=== PATIENT | male | born 1955 | race Caucasian/White ===

== ENCOUNTER 2016-08-14 17:38 | Inpatient (IN) ==
[2016-08-14 18:56] LABS: MANUAL DIFF NEEDED? NO
[2016-08-14 18:59] LABS: BASO% 0.2 % (0.0-0.8); EOS# 0.26 X1000 (0.0-0.7); EOS% 2.8 % (0.0-10.0); HEMATOCRIT 43.9 % (42.0-52.0); HEMOGLOBIN 14.5 g/dL (14.0-18.0); IMM GRAN# 0.01 X1000 (0.0-0.04); IMM GRAN% 0.1 % (0.0-0.5); LYMPH# 2.81 X1000 (1.2-3.4); LYMPH% 29.8 % (20.5-51.1); MCH 29.4 PG (27-31); MCV 88.9 FL (81-99); MONO# 0.78 X1000 (0.11-0.59); MONO% 8.3 % (1.7-9.3); MPV 9.8 FL (7.4-10.4); NEUT% 58.8 % (42.2-75.2); PLT 281 X1000 (130-400); RBC 4.94 XMIL (4.7-6.1)
[2016-08-14 19:15] LABS: INR 0.97 (0.86-1.15); PROTIME 13.2 Seconds (12.1-15.5)
[2016-08-14 19:20] LABS: AGAP 12; ALKALINE PHOSPHATASE 102 U/L (32-122); BUN 21 mg/dL (8-22); CALCIUM 9.4 mg/dL (8.8-10.2); CHLORIDE 103 mmol/L (98-107); COSMO 287; GOT 18 U/L (10-34); GPT 20 U/L (10-44); POTASSIUM 3.9 mmol/L (3.5-5.1); SODIUM 141 mmol/L (136-145); TCO2 26 mmol/L (25-35); TOTAL PROTEIN 7.4 g/dL (6.3-8.3)
[2016-08-14] MEDS ORDERED: TYLENOL PO PRN (20:04)
[2016-08-14] MEDS ORDERED: LOVENOX 1 MG/KG SUBQ ONE (20:04)
[2016-08-14] MEDS ORDERED: NS 1,000 ML IV ONE (20:04)
[2016-08-14] MEDS ORDERED: LOVENOX ONE (20:13)
--- NOTE | 2016-08-14 20:13 | Extremity Venous Study ---
EXAM: Venous U/S Left Leg INDICATION: swelling hx ca kidney TECHNIQUE: COMPARISON: None. FINDINGS: There is extensive occlusive thrombus in the left deep venous system. It involves the common femoral vein, superficial femoral vein, popliteal vein, posterior tibial vein, and peroneal veins. There is also thrombus in the great saphenous vein. There is surrounding soft tissue edema. IMPRESSION: 1.Extensive left lower extremity deep venous thrombosis as described. 2.Superficial thrombus in the great saphenous vein. Electronically signed by Miguel Oliveira 08/14/2016 8:11 PM
[2016-08-14] MEDS ORDERED: DUONEB (A & A) INH PRN (20:49)
[2016-08-14] MEDS: NICODERM PATCH TD SCH (23:29)
[2016-08-15] MEDS ORDERED: COUMADIN PO ONE (07:59)
[2016-08-15] MEDS: NICODERM PATCH TD SCH (08:42)
[2016-08-15] MEDS: LOVENOX SUBQ SCH ×2 (08:42→21:49)
--- NOTE | 2016-08-15 12:31 | HISTORY AND PHYSICAL ---
CHIEF COMPLAINT: Left lower extremity edema and pain. HISTORY OF PRESENT ILLNESS: This is a 61-year-old male with a prior history of renal cancer, CAD with SC x2, CVA who presented to the emergency room complaining of about 24 hours of left lower extremity edema and pain. He denies any known injury. He states he did fall 3 weeks ago and sustained a left hip injury, although after being evaluated in the emergency room, he was found to have no bony injury and discharged home. Lower extremity Doppler of the left leg revealed extensive left lower extremity DVT, involving the common femoral vein, superficial femoral vein, popliteal vein, posterior tibial vein and peroneal vein. There is also thrombus in the great saphenous vein. In the emergency room, he was given warfarin 5 mg as well as Lovenox 1 mg/kg and is being admitted for further evaluation and treatment. PAST MEDICAL HISTORY: CAD status post SC x2. Renal cancer. CVA. COPD. Hyperlipidemia. PAST SURGICAL HISTORY: Tonsillectomy. Nephrectomy. SOCIAL HISTORY: He denies any illicit drug use. He does smoke 2 packs a day and he does drink alcohol. ALLERGIES: Codeine. MEDICATIONS: None. REVIEW OF SYSTEMS: A 14 point review of systems is discussed with the patient with pertinent positives stated in the HPI. He denied chest pain, palpitations, dizziness, syncope, fever, chills, cough, PND, orthopnea, shortness of breath, dyspnea on exertion, any nausea, vomiting, diarrhea, constipation, black or bloody vomitus, black or bloody stools. PHYSICAL EXAMINATION: GENERAL: This is a 61-year-old male who is lying in the bed in no distress. VITAL SIGNS: Blood pressure is 150/90, with a heart rate of 73, respirations are 18, temperature is 98.2 degrees, with room air saturations 100%. CARDIOVASCULAR: Regular rate and rhythm. S1 and S2 appreciated. PULMONARY: Breath sounds are clear with no increased work of breathing noted gastrointestinal. GASTROINTESTINAL: Abdomen is soft, nontender, nondistended with bowel sounds in all 4 quadrants. EXTREMITIES: No clubbing, cyanosis, or edema to upper extremities and right lower. Left lower extremity has pitting edema from about midthigh down with pulses palpable x4. NEUROLOGIC: He is alert and oriented x3. LABORATORY: WBC is 9.4, with hemoglobin 14.5, hematocrit 43.9, and platelets of 281,000. INR is 0.97 with a D-dimer of 5.61. Sodium is 141, potassium 3.9, BUN 21, creatinine 0.9, with a glucose of 140, with left lower extremity Doppler stated above. ASSESSMENT AND PLAN: 1. Extensive deep venous thrombosis, left lower extremity. 2. Lower extremity edema secondary to #1. 3. Coronary artery disease. 4. History of cerebrovascular accident. 5. Chronic obstructive pulmonary disease. 6. Tobacco abuse and use. 7. Alcohol use. 8. Noncompliance with medications. PLAN: He will be admitted to the hospital. He was will continue Lovenox until he is therapeutic with his warfarin. I did discuss with the patient the importance of taking his warfarin and following up to make sure that he is therapeutic so that he gets no more clot nor bleed. The patient states that he stopped taking all of his medications in the past, stating that he felt better without them than while taking them. Further treatments pending hospital course. Dictated by CM Hernandez for Karl Jesus MD cc: MC Hernandez MD
[2016-08-15] MEDS ORDERED: COUMADIN PO SCH (21:00)
[2016-08-16 07:13] LABS: PROTIME 13.5 Seconds (12.1-15.5)
[2016-08-16 07:46] VITALS: BP 127/75
--- NOTE | 2016-08-16 07:59 | DISCHARGE SUMMARY ---
ADMISSION DATE: 08/14/2016 DISCHARGE DATE: 08/16/2016 DIAGNOSES: 1. Extensive deep venous thrombosis of the left lower extremity. 2. Left lower extremity edema secondary to #1. 3. History of coronary artery disease. 4. History of cerebrovascular accident. 5. Chronic obstructive pulmonary disease. 6. Tobacco use and abuse. 7. Alcohol use. 8. Noncompliance with medication and physician followup. DIAGNOSTICS: On 08/14/2016, a left leg venous ultrasound revealed extensive thrombus in the left lower extremity with superficial thrombus in the greater saphenous vein. HOSPITAL COURSE: Mr. Azevedo presented to the emergency room complaining of 24 hours of left lower extremity edema and pain. He was found to have an extensive DVT to the left lower extremity. He was initially started on Lovenox and warfarin. Once we found that he could afford Xarelto, we did transition to that. DISCHARGE PHYSICAL EXAMINATION: Cardiovascular: Regular rate and rhythm. S1 and S2 are appreciated. Pulmonary: Breath sounds are clear and no increased work of breathing noted. Gastrointestinal: Abdomen is soft, nontender, nondistended. Bowel sounds in all 4 quadrants. Extremities: No clubbing, cyanosis, or edema to upper extremities or right lower extremity. Left lower extremity has some pitting edema from midthigh down, with pulses palpable x4. Neurologic: He is alert and oriented x3. DISCHARGE MEDICATIONS: 1. Xarelto 15 mg twice a day for 21 days. 2. Xarelto 20 mg daily to start on day 22 after completing the 50 mg b.i.d. DISCHARGE ACTIVITY: As tolerated. FOLLOWUP: He needs to follow up with his primary care physician in 2-3 weeks. If he does not have a primary care physician, he will be given to assist with finding one. The patient does have a history of CAD as well as stroke and COPD. He stated that he stopped taking medications quite some time ago as he felt that he was better without them than while taking them. We did discuss the importance of taking his Xarelto and then stopping this, and the perils of stopping the medication including a pulmonary embolus, stroke, [place], or . He did voice understanding. He is being discharged home in stable condition with family members. TIME SPENT: This is a greater than 30 minute discharge. Dictated by MC Hernandez for Karl Jesus MD cc: MC Hernandez MD
[2016-08-16] MEDS: NICODERM PATCH TD SCH (08:03)
[2016-08-16] MEDS ORDERED: XARELTO PO SCH (09:00)
--- NOTE | 2016-09-04 19:52 | PROVIDER DOCUMENTATION ---
This chart was entered by Coral Hernandez Scribe, acting as scribe for Obed Galloway MD. HPI-Musculoskeletal Pain/Inj - GENERAL Chief Complaint: Extremity Pain Stated Complaint: LEG SWELLING,THIGH PAIN Time Seen by Provider: 08/14/16 18:42 Source: patient - HX OF PRESENT ILLNESS-MUSKULOSKELTAL Nature of Presenting Problem: 61 Y/O M presents to ED with Extremity Pain. Pt has a hx of kidney Cancer and states starting yesterday he had pain in his leg. C/o of edema in his left thigh radiating down his left leg. Pt states that he had no injury, recent hip surgery 3 weeks ago. Hx of smoker with COPD . Quality of Pain: reports: aching Severity in ED: moderate Onset/Duration: last night Timing: still present Any recent injury?: No Locality of Occurance: Home Recently seen or treated by another doctor?: Yes (3 weeks ago for hip surgery ) - LOWER EXTREMITY PAIN/INJURY Lower Extremities Pain: leg: left, thigh: left Context / Method of Injury: reports: unknown Associated Symptoms: reports: denies symptoms Review of Systems - Adult - REVIEW OF SYSTEMS - ADULT Constitutional: denies: chills, fever Eyes: reports: no symptoms reported Ears, Nose, Mouth & Throat: reports: no symptoms reported Cardiovascular: reports: no symptoms reported Respiratory: reports: no symptoms reported Gastrointestinal: reports: no symptoms reported Genitourinary: reports: no symptoms reported Musculoskeletal: reports: muscle aches. denies: frequent leg cramps, muscle weakness Integumentary: reports: no symptoms reported Neurological: reports: no symptoms reported Psychiatric: reports: no symptoms reported Endocrine: reports: no symptoms reported Hematologic/Lymphatic: reports: no symptoms reported Allergic/Immunologic: reports: no symptoms reported All Other Systems: Reviewed and Negative Past History - Adult - PAST MEDICAL HISTORY-ADULT Review of Records: reports: Old Records Reviewed, Nursing Assessment Review, Medications Reviewed, Social history reviewed & non-contributory. Major Childhood Illnesses: reports: denies history Cardiovascular: reports: hyperlipidemia, [place] (x2) Respiratory: reports: COPD Gastrointestinal: reports: denies history Obstetrical/Gynecological: reports: denies history Genitourinary: reports: cancer, kidney disease Musculoskeletal: reports: denies history Neurological: reports: CVA (x2) Endocrine/Immune: reports: denies history Other Conditions: reports: denies history - PRIOR SURGERIES/PROCEDURES Surgical/Procedure History: reports: tonsillectomy - IMMUNIZATION STATUS Childhood Immunizations: See Nurse Assessment Flu Vaccine: See Nurse Assessment - FAMILY HISTORY Family History: reviewed, not pertinent Physical Exam-Injury Related - Physical Exam-Injury Related General Appearance: alert, mild distress Eyes: PERRL/EOMI, pink conjunctivae Head, Ears, Nose, Mouth & Throat: moist mucous membranes, normal ENT inspection , TMs normal, pharynx normal Neck: full range of motion, supple, normal inspection Respiratory: lungs clear, normal breath sounds Cardiovascular: regular rate, rhythm Abdominal Exam: non tender, soft Male Genitalia: normal genitalia Lymphatic: no adenopathy Back Exam: no CVA tenderness Extremity: pedal edema (left leg), swelling (left leg), tenderness (left leg), other (modeled, diffused left leg) Integumentary: warm/dry Psych/Mental Status: normal mood/affect, normal thought content, normal thought process, oriented x 3 - Glascow Coma Score Best Eye Response (Holcomb): (4) open spontaneously Best Verbal Response (Gerardo): (5) oriented Best Motor Response ([place]comb): (6) obeys commands Holcomb Total: 15 Progress - PLAN OF CARE/RESULTS Progress/Plan/Lab Results: Orders Category Date Time Status Admit - [facility] Routine AdmDCTranf 08/14/16 20:04 Ordered Activity - Strict Bedrest ORDERED Care 08/14/16 20:04 Active Vital Signs Order Q 8-HR .ASSESS Care 08/14/16 20:04 Active Z-Document. for Tele Applied ORDERED Care 08/14/16 20:06 Completed Heart Healthy Diet Diet 08/14/16 20:06 Completed CBC WITH DIFF [HEME] Stat Lab 08/14/16 18:40 Completed COMPREHENSIVE METABOLIC PANEL [CHEM] Stat Lab 08/14/16 18:[address] D-D[address] [COAG] Stat Lab 08/14/16 18:40 Completed PROTIME WITH INR PL [COAG] Stat Lab 08/14/16 18:40 Completed 0.9% Sodium Chloride Inj [Ns] 1,000 ml Med 08/14/16 20:04 Discontinued IV 100 mls/hr Acetaminophen [Tylenol] Med 08/14/16 20:04 Discontinued 650 mg PO Q6H PRN PRN Enoxaparin 1 mg/kg [Lovenox 1 mg/kg] Med 08/14/16 20:04 Discontinued 1 each SUBQ NOW ONE Enoxaparin [Lovenox] Med 08/14/16 20:13 Discontinued 80 mg .ROUTE .STK-MED ONE Telemetry [OM.EQ] Routine Oth 08/14/16 20:04 Active Venous U/S Left Leg Stat Ther 08/14/16 18:43 Completed Transfer/Admit Order [TRANSFER] Routine Transfer 08/14/16 20:09 Completed Result Diagrams: 08/14/16 18:40 08/14/16 18:40 - ULTRASOUND (By Radiology) 1 US Study: Lower Ext Impression: Abnormal US Results: bloodclot noted throughout leg Departure - Departure Date of Disposition Decision: 08/14/16 Time of Disposition Decision: 18:50 DIAGNOSIS: DVT (deep venous thrombosis) Qualifiers: DVT location: lower extremity Affected thrombotic vein of extremity: unspecified vein of extremity Chronicity: unspecified Laterality: left Qualified Code(s): I82.402 - Acute embolism and thrombosis of unspecified deep veins of left lower extremity Disposition: ADMITTED INPATIENT 09 Certified Medical Emergency: Emergent Condition: Stable - Critical Care Note This patient required my direct & personal management of CC.: No This chart was documented by the indicated scribe, (Coral Hernandez Scribe) and accurately reflects the services I performed and decisions made by me, Obed Galloway MD, as attested by the provider's signature.
== END 2016-08-16 08:15 | disposition home or self-care (01) ==
LOC: P.ED 17:38 → SUATTDRO 20:28 → P.MEDSURG 20:28
PROVIDERS: ATTEND Family Medicine